=== PATIENT | female | born 1995 | race Caucasian/White ===

== ENCOUNTER 2023-12-18 12:22 | Inpatient (IN) | payer BC ==
[~2023-12-18] VITALS: Ht 162.6 cm; Wt 107.0 kg
[2023-12-18] MEDS ORDERED: OMEP40CA4 PO (12:30)
[2023-12-18] MEDS: NS 1,000 ML IV ONE (13:39)
[2023-12-18] MEDS: MORPHINE 4 MG/ML 1ML VIAL IV ONE ×3 (13:39→17:25)
[2023-12-18] MEDS: ONDANSETRON 4MG 2ML VIAL IV ONE (13:39)
[2023-12-18 14:15] LABS: HEMATOCRIT 43.3 % (36.0-47.0); MEAN CORPUSCULAR HEMOGLOBIN 30.3 pg (27.0-33.0); MEAN CORPUSCULAR VOLUME 87.5 fl (80.0-96.0); RED BLOOD COUNT 4.95 10^6/uL (4.00-5.40); WHITE BLOOD COUNT 10.1 10^3/uL (4.0-10.0)
[2023-12-18 14:16] LABS: BASO % 0.2 % (0.0-1.0); EOS % 0.3 % (0.0-3.0); LYMPH # 0.9 10^3/uL (1.5-5.0); LYMPH % 9.3 % (24.0-44.0); MEAN CORPUSCULAR HGB CONC 34.6 g/dl (32.0-36.5); MONO # 0.6 10^3/uL (0.0-0.8); MONO % 5.9 % (2.0-8.0); NEUTROPHILS % 84.1 % (36.0-66.0); PLATELET COUNT, AUTOMATED 268 10^3/uL (150-450)
[2023-12-18 14:17] LABS: NEUTROPHILS # 8.5 10^3/uL (1.5-8.5)
[2023-12-18 14:28] LABS: LIPASE 30 U/L (12-53)
[2023-12-18 14:31] LABS: ALBUMIN 4.1 G/DL (3.2-5.2); ALKALINE PHOSPHATASE 94 U/L (46-116); ALT/SGPT 47 U/L (7.0-40); AST/SGOT 19 U/L (<34); BILIRUBIN,DIRECT 0.4 MG/DL (<0.4); BILIRUBIN,TOTAL 1.2 MG/DL (0.3-1.2); BLOOD UREA NITROGEN 14 MG/DL (9-23); CALCIUM LEVEL 9.9 MG/DL (8.5-10.1); CARBON DIOXIDE LEVEL 26 MMOL/L (20-31); CHLORIDE LEVEL 106 MMOL/L (98-107); CREATININE FOR GFR 0.75 MG/DL (0.55-1.30); GLOMERULAR FILTRATION RATE > 60.0 (>60); GLUCOSE, FASTING 100 MG/DL (60-100); SODIUM LEVEL 139 MMOL/L (136-145); TOTAL PROTEIN 7.2 G/DL (5.7-8.2)
[2023-12-18] MEDS ORDERED: ISOVUE-370 76% 100ML VIAL As Ordered ONE (14:39)
[2023-12-18] MEDS ORDERED: CENT1TAB7 PO (17:36)
[2023-12-18] MEDS ORDERED: HOME MED LIST COMPLETE! XX SCH (17:40)
[2023-12-18] MEDS ORDERED: ONDANSETRON 4MG 2ML VIAL IV PRN (22:00)
[2023-12-18 22:03] VITALS: BP 125/70; TEMP 98.6; O2SAT 96
[2023-12-18] MEDS: LR 1,000 ML IV SCH (22:27)
[2023-12-18] MEDS: HYDROMORPHONE HCL 0.5 MG/ 0.5 ML SYRINGE IV PRN (22:28)
[2023-12-19] VITALS (10 sets, daily range): BP systolic 110–133; BP diastolic 63–81; TEMP 96.6–98.1; O2SAT 93–98
[2023-12-19] MEDS: HYDROMORPHONE HCL 0.5 MG/ 0.5 ML SYRINGE IV PRN (02:56)
[2023-12-19] MEDS: PIPERACILLIN/TAZOBACTAM SOD 3.375 GM in D5W MINI-BAG PLUS 50 ML IV SCH (07:51)
[2023-12-19] MEDS ORDERED: fentaNYL 100 MCG/2 ML INJECTION As Ordered ONE (12:47)
[2023-12-19] MEDS ORDERED: propofoL 200 MG/20 ML VIAL As Ordered ONE (12:47)
[2023-12-19] MEDS ORDERED: LIDOCAINE 2% 100MG/5ML SDV (FOR ANES.) As Ordered ONE (12:47)
[2023-12-19] MEDS ORDERED: ONDANSETRON 4MG 2ML VIAL As Ordered ONE (12:47)
[2023-12-19] MEDS ORDERED: SUGAMMADEX SODIUM 500 MG/5 ML VIAL (BRIDION) As Ordered ONE (12:47)
[2023-12-19] MEDS ORDERED: ROCURONIUM BROMIDE 50MG/5ML VIAL As Ordered ONE (12:47)
[2023-12-19] MEDS ORDERED: MIDAZOLAM INJ 2MG/2ML VIAL As Ordered ONE (12:47)
[2023-12-19] MEDS ORDERED: INDOCYANINE GREEN 25MG VIAL (IC-GREEN) As Ordered ONE (12:47)
[2023-12-19] MEDS ORDERED: HYDROmorphone HCL 2MG/ML 1ML VIAL As Ordered ONE (12:48)
[2023-12-19] MEDS ORDERED: ACETAMINOPHEN 1000MG 100ML IV BAG As Ordered ONE (12:49)
[2023-12-19] MEDS: LIDOCAINE 1% MDV 20ML VIAL As Ordered ONE (13:08)
[2023-12-19] MEDS ORDERED: KETOROLAC 60MG 2ML VIAL As Ordered ONE (14:34)
[2023-12-19] MEDS ORDERED: fentaNYL 100 MCG/2 ML INJECTION IV PRN (15:20)
[2023-12-19] MEDS ORDERED: ONDANSETRON 4MG 2ML VIAL IV PRN (15:20)
[2023-12-19] MEDS ORDERED: HYDROMORPHONE HCL 0.5 MG/ 0.5 ML SYRINGE IV PRN (15:20)
[2023-12-19] MEDS ORDERED: PERCOCET 5MG/325MG TAB PO PRN (15:20)
[2023-12-19] MEDS ORDERED: oxyCODONE 5MG TAB PO PRN (15:20)
[2023-12-19] MEDS: LR 1,000 ML IV SCH (15:20)
[2023-12-19] MEDS: PERCOCET 5MG/325MG TAB PO PRN (16:10)
[2023-12-19 19:28] LABS: ALBUMIN 3.2 G/DL (3.2-5.2); ALKALINE PHOSPHATASE 104 U/L (46-116); ALT/SGPT 99 U/L (7.0-40); AST/SGOT 73 U/L (<34); BILIRUBIN,TOTAL 1.8 MG/DL (0.3-1.2); BLOOD UREA NITROGEN 13 MG/DL (9-23); CARBON DIOXIDE LEVEL 26 MMOL/L (20-31); CHLORIDE LEVEL 105 MMOL/L (98-107); CREATININE FOR GFR 0.75 MG/DL (0.55-1.30); GLOMERULAR FILTRATION RATE > 60.0 (>60); GLUCOSE, FASTING 137 MG/DL (60-100); SODIUM LEVEL 137 MMOL/L (136-145); TOTAL PROTEIN 6.1 G/DL (5.7-8.2)
[2023-12-19] MEDS: KETOROLAC 30 MG/ML 1ML VIAL IV SCH (23:11)
[2023-12-20 01:00] VITALS: BP 115/64; TEMP 97.9; O2SAT 93
[2023-12-20 05:00] VITALS: BP 114/64; TEMP 97.7; O2SAT 93
[2023-12-20 09:00] VITALS: BP 124/76; TEMP 97.7; O2SAT 96
[2023-12-20] MEDS: ENOXAPARIN 40MG/0.4ML SYRINGE (J1650 PER 10MG) SC SCH (09:04)
[2023-12-20 10:02] LABS: HEMOGLOBIN 13.1 g/dl (12.0-15.5); MEAN CORPUSCULAR HGB CONC 34.5 g/dl (32.0-36.5); MEAN CORPUSCULAR VOLUME 89.8 fl (80.0-96.0); PLATELET COUNT, AUTOMATED 293 10^3/uL (150-450); RED BLOOD COUNT 4.23 10^6/uL (4.00-5.40); WHITE BLOOD COUNT 8.3 10^3/uL (4.0-10.0)
[2023-12-20 10:19] LABS: ALBUMIN 3.3 G/DL (3.2-5.2); ALKALINE PHOSPHATASE 93 U/L (46-116); ALT/SGPT 81 U/L (7.0-40); AST/SGOT 36 U/L (<34); BILIRUBIN,TOTAL 1.1 MG/DL (0.3-1.2); BLOOD UREA NITROGEN 12 MG/DL (9-23); CALCIUM LEVEL 9.4 MG/DL (8.5-10.1); CARBON DIOXIDE LEVEL 26 MMOL/L (20-31); CHLORIDE LEVEL 107 MMOL/L (98-107); CREATININE FOR GFR 0.72 MG/DL (0.55-1.30); GLOMERULAR FILTRATION RATE > 60.0 (>60); GLUCOSE, FASTING 103 MG/DL (60-100); POTASSIUM SERUM 3.8 MMOL/L (3.5-5.1); SODIUM LEVEL 142 MMOL/L (136-145)
[2023-12-20] MEDS: MIRALAX *UNIT DOSE* 17GM PACKET PO PRN (10:44)
[2023-12-20] MEDS: MOXIFLOXACIN 400 MG TAB PO SCH (12:40)
[2023-12-20 13:00] VITALS: BP 123/77; TEMP 97.5; O2SAT 96
[2023-12-20] MEDS ORDERED: MOXI400T11 PO (13:18)
[2023-12-20 17:00] VITALS: BP 103/64; TEMP 97; O2SAT 94
[2023-12-20 21:00] VITALS: BP 121/74; TEMP 97.9; O2SAT 96
[2023-12-21 02:01] VITALS: BP 112/65; TEMP 97.7; O2SAT 94
[2023-12-21 06:17] VITALS: BP 127/81; TEMP 97.7; O2SAT 95
[2023-12-21] MEDS ORDERED: PERC5TAB12 PO (07:59)
== END 2023-12-21 08:48 | disposition home or self-care (01) | DRG 263 ==
LOC: M ED 12:22 → M ED INP 21:59 → M MSPAV 22:46
PROVIDERS: ADMIT Internal Medicine; ATTEND Internal Medicine
PROC: 8E0W4CZ Robotic Assisted Procedure of Trunk Region, Percutaneous Endoscopic Approach (ICD-10-PCS; 2023-12-19)
PROC: 0FT44ZZ Resection of Gallbladder, Percutaneous Endoscopic Approach (ICD-10-PCS; principal; 2023-12-19 13:00)
DX: K80.00 Calculus of gallbladder with acute cholecystitis without obstruction (principal); Z68.41 Body mass index [BMI] 40.0-44.9, adult; E66.01 Morbid (severe) obesity due to excess calories